=== PATIENT | female | born 1990 | race Caucasian/White ===

== ENCOUNTER 2021-04-11 08:00 | Outpatient (CLI) | payer SELFPAY | END 2021-04-11 23:59 | LOC: LAB.N 08:00 | PROVIDERS: ATTEND Family Medicine | DX: R09.81 Nasal congestion (principal); Z20.822 Contact with and (suspected) exposure to COVID-19 ==

== ENCOUNTER 2022-02-02 22:11 | Emergency (ER) | payer SELFPAY ==
[2022-02-02 22:29] VITALS: BP 123/61
--- NOTE | 2022-02-03 00:26 | XRAY Report ---
PROCEDURE: Chest 2 View X-Ray INDICATIONS: L side CP TECHNIQUE: 2 views of the chest were acquired. COMPARISON: None. FINDINGS: Surgical changes and devices: None. Lungs and pleura: No pleural effusions or pneumothorax. Lungs are clear. Mediastinum: Mediastinal contours are normal. Heart size is normal. Bones and chest wall: No suspicious bony abnormalities. Soft tissues appear unremarkable. IMPRESSION: 1. No acute cardiopulmonary disease. Reviewed by: Kai Dominguez MD on 02/03/2022 12:33 AM [facility] Approved by: Kai Dominguez MD on 02/03/2022 12:33 AM [facility] Station ID: [id number]
== END 2022-02-02 23:48 | disposition left against medical advice (07) ==
LOC: ED 22:11
DX: Z53.21 Procedure and treatment not carried out due to patient leaving prior to being seen by health care provider (principal)
CPT/HCPCS: 93005